=== PATIENT | female | born 1990 | race Caucasian/White ===

== ENCOUNTER 2024-03-21 16:10 | Emergency (ER) | payer OTHER, SELFPAY ==
--- NOTE | ~2024-03-21 | XR_ITS ---
CLINICAL HISTORY: middle finger injury Three views of the left middle finger. Findings: No acute fractures are seen. There is no dislocation. There is mild soft tissue swelling. Impression: No acute fractures. This document has been electronically signed by: Carlos Alberto Hinds MD on 03/21/2024 17:22:39
[2024-03-21 16:16] VITALS: BP 126/84; PULSE 93; RESP 18; TEMP 37.1; O2SAT 98; BMI 26.6
--- NOTE | 2024-03-21 17:43 | ED_ITS ---
HPI - Wound/Laceration General Chief Complaint: Extremity Injury, Lower Stated Complaint: laceration to middle left finger Time Seen by Provider: 03/21/24 17:42 Source: patient Mode of arrival: ambulatory Limitations: no limitations History of Present Illness ED Provider: Allison Richards PA-C HPI narrative: 33 yo right hand dominant female presents to the ER from [facility] for evaluation of left middle finger injury sustained today while at work. She states a window accidentally shut on her finger, causing it to break her middle fingernail and lacerate the tip. she was sent to the ER for concern of an open finger fracture. no numbness, tingling. she is able to fully extend and flext the finger. unknown tdap status. Onset (ago): hour(s) Extremity Location: left: hand (middle finger) Place: work Patient tetanus UTD: No Context: accidental Associated symptoms: none Treatments prior to arrival: bandage Related Data Allergies Allergy/AdvReac Type Severity Reaction Status Date / Time No Known Allergies Allergy Verified 03/21/24 16:20 Review of Systems Review of Systems: Yes all other systems are reviewed and are negative [facility] Social History Social History Advance Directives: No Advance Directives Information Provided: No Do you have a plan to hurt others: No Plan Physical Exam Vital Signs: Vital Signs: Last Vital Signs Temp 98.7 F 03/21/24 18:25 Pulse 93 03/21/24 18:25 Resp 18 03/21/24 18:25 BP 126/84 03/21/24 18:25 Pulse Ox 98 03/21/24 18:25 O2 Del Method Room Air 03/21/24 18:25 BMI result Body Mass Index 26.6 Appearance: Alert. Oriented X3. No acute distress. HEENT: normal inspection CVS: Normal heart rate and rhythm. Pulses normal. Respiratory: No respiratory distress. Skin: Skin warm and dry. Normal skin color. Normal skin turgor. No rashes. Extremities: left middle finger with an irregular laceration of the tip involving the distal nail which is severed, mild oozing. proixmal nail bed is intact. sensation and cap refill intact. FROM Neuro: Oriented X 3. No motor deficit. No sensory deficit. Medications Administered Discontinued Medications Generic Name Dose Route Start Last Admin Trade Name Freq PRN Reason Stop Dose Admin Diphtheria/Tetanus/Acell Pertussis 0.5 ml 03/21/24 17:44 03/21/24 18:21 Diphth,Pertus(Acell),Tet Adult 0.5 Ml Syringe IM 03/21/24 17:45 0.5 ml .ONCE ONE Administration Lidocaine HCl 5 ml 03/21/24 17:42 03/21/24 18:04 Lidocaine Hcl 1 % Mpf 5 Ml Vial INFILTRATI 03/21/24 17:43 5 ml ONCE ONE Administration Lidocaine/Epinephrine 10 ml 03/21/24 17:52 03/21/24 17:58 Lidocaine Hcl 1%/Epi 1:100,000 10 Ml Vial INFILTRATI 03/21/24 17:53 10 ml ONCE ONE Administration Medical Decision Making Medical Decision Making MDM Narrative: 33 yo female presenting for evaluation of a complex left middle finger laceration involving the nail. xr done today does not show any fracture wound was irrigated and soaked in lidocaine w/ epi. bleeding controlled. distal portion of the fingernail was removed and wound was closed with exofin skin glue and steri strips tdap given [facility] follow up tomorrow stable for d/c home Differential Diagnosis Differential Diagnoses: The differential diagnosis associated with the presentation includes open finger fracture, nail laceration, superficial laceration Independent Interpretation I performed an independent interpretation of an: Plain X-Ray Interpretation: no acute fracture seen, agree w/ radiology read Radiology Impression Discussion of test interpretation with radiology: I have reviewed the radiologist's reading. Radiologist Impression: Findings: No acute fractures are seen. There is no dislocation. There is mild soft tissue swelling. Impression: No acute fractures. Prescription Management I considered prescription management with: Pain Medication and Antibiotic Procedures Laceration Laceration 1: Site: hand Side (If applicable): left Size (cm): 1.5 Description: irregular Depth: simple, single layer Local Anesthetic: lidocaine 1% Amount of anesthesia used (mL): 1 Pre-repair: wound explored, irrigated extensively, deep structures intact and wound margins revised (distal nail removedf) Skin layer closed with: other (exofin skin glue and steri strips) Critical Care Time Critical Care Time Critical Care Time: No Discharge Plan Discharge Clinical Impression: Finger laceration Qualifiers: Encounter type: initial encounter Finger: middle finger Damage to nail status: with damage Foreign body presence: without foreign body Laterality: left Qualified Code(s): S61.313A - Laceration without foreign body of left middle finger with damage to nail, initial encounter Patient Disposition: Home, Self-Care Instructions: Finger Laceration (ED) Additional Instructions: your x-ray today did not show any broken bones steri strips and skin glue were used to close the wound after the distal piece of your nail was removed these will come off on their own, do not peel them off do not get wet for 36-48 hours then you can briefly wash then pat dry keep clean and covered elevate when possible take motrin and tylenol as needed for pain follow up with [facility] If you develop new or worsening symptoms call 911 or come back to the ER for further evaluation. Stand Alone Forms: Work/School Release Interventions: ED Discharge Assessment Last Done: 03/21/24 18:25 Discharge Date/Time: 03/21/24 18:36 Print Language: Kyrgyz
[2024-03-21] MEDS: Lidocaine HCl 1%/Epi 1:100,000 10 ML VIAL INFILTRATI (17:58)
--- NOTE | 2024-03-21 17:58 | PC.NURSE ---
lido with epi used topically
[2024-03-21] MEDS: Lidocaine HCl 1 % MPF 5 ML VIAL INFILTRATI (18:04)
[2024-03-21] MEDS: Diphth,Pertus(ACell),Tet Adult 0.5 ML SYRINGE IM (18:21)
[2024-03-21 18:25] VITALS: BP 126/84; PULSE 93; RESP 18; TEMP 37.1; O2SAT 98
== END 2024-03-21 18:36 | disposition home or self-care (01) ==
LOC: HO.ED 18:29
PROVIDERS: Emergency Provider Emergency Medicine; PCP Internal Medicine
DX: S61.313A Laceration without foreign body of left middle finger with damage to nail, initial encounter (principal); W20.8XXA Other cause of strike by thrown, projected or falling object, initial encounter; Y93.89 Activity, other specified; Y92.59 Other trade areas as the place of occurrence of the external cause; Y99.0 Civilian activity done for income or pay; Z23 Encounter for immunization
CPT/HCPCS: 12001; 73140; 90471; 90715; 99282; 99284; J2003; J2004

== ENCOUNTER → 2024-03-21 16:18 | Outpatient (BNV) | payer OTHER, SELFPAY | PROVIDERS: Emergency Provider Emergency Medicine; PCP Internal Medicine; Visit Provider Radiology Diagnostic Radiology | DX: S60.943A Unspecified superficial injury of left middle finger, initial encounter (principal) | CPT/HCPCS: 73140 ==

== ENCOUNTER → 2024-03-22 08:48 | Outpatient (BNVA) | payer OTHER, SELFPAY | PROVIDERS: PCP Internal Medicine; Visit Provider Physician Assistant | DX: S60.132A Contusion of left middle finger with damage to nail, initial encounter (principal); W24.0XXA Contact with lifting devices, not elsewhere classified, initial encounter | CPT/HCPCS: 99202 ==

== ENCOUNTER → 2024-03-26 08:11 | Outpatient (BNVA) | payer OTHER, SELFPAY | PROVIDERS: PCP Internal Medicine; Visit Provider Registered Nurse | DX: S61.313A Laceration without foreign body of left middle finger with damage to nail, initial encounter (principal); W24.0XXA Contact with lifting devices, not elsewhere classified, initial encounter | CPT/HCPCS: 99213 ==

== ENCOUNTER 2024-04-24 09:20 | Outpatient (AMB) | payer OTHER, SELFPAY ==
[2024-04-24 09:22] VITALS: BP 120/68; PULSE 99; O2SAT 97; BMI 26.6
--- NOTE | 2024-04-24 09:22 | MHC.OFFVIS ---
Vital Signs 04/24/24 09:22 Height 5 ft 4 in Weight 155 lb BMI 26.6 BP 120/68 Blood Pressure Location Rt brachial Position Sitting Pulse 99 Pulse Oximetry (%) 97 Oxygen Delivery Method Room Air Intake Visit Reasons: Asthma Marine Mechanic Required: No Draw Furnace Tender: Draw Furnace Tender offered & declined Accompanied by: Self / Same As Patient Allergies No Known Allergies Allergy (Verified 04/24/24 09:28) Medication List - Last Reconciled 04/24/24 by Erika Mason LPN desogestrel-ethinyl estradiol 0.15-0.03 mg (Apri) 1 tab PO DAILY fluoxetine 20 mg PO DAILY fluticasone propion-salmeterol 100-50 mcg/dose (Wixela Inhub) 1 inh inhalation Q12H hydroxyzine pamoate 25 mg PO TID PRN HPI HPI Asthma: Details: Michelle is a pleasant 34 year old female, never smoker, with underlying asthma, anxiety and depression. She was referred by PCP for pulmonary evaluation. She was previously under the care of pulmonary with Dr. Nevarez, however provider retiring and presents to establish care. She is well controlled on Wixela 100 mcg and has not required albuterol MDI in quite some time. At this time, denies any respiratory symptoms. She was dx with asthma as an adult. She denies seasonal allergies. She denies any occupational exposures. She reports paternal grandfather, smoker, with h/o lung cancer otherwise no pertinent family history. [facility] Social History (Updated 04/24/24 @ 09:29 by Erika Mason LPN) Patient Tobacco Use Status: Never used Tobacco Review of Systems Const Denies chills, Denies excessive sweating, Denies fever(s), Denies headache(s) and Denies night sweats Eyes Denies dry eyes, Denies irritation and Denies itchy eyes ENT Reports Normal hearing present, Denies headache(s), Denies nasal congestion, Denies nasal discharge, Denies post nasal drip and Denies sore throat Card Denies chest pain, Denies chest pain at rest, Denies chest pain with activity, Denies claudication, Denies leg edema, Denies dyspnea, Denies dyspnea on exertion, Denies orthopnea and Denies paroxysmal nocturnal dyspnea Resp Denies chest congestion, Denies cough, Denies excessive phlegm production, Denies pain on inspiration, Denies pain with cough, Denies dyspnea, Denies dyspnea on exertion, Denies stridor and Denies wheezing Musc Denies myalgias Neuro Reports Normal hearing present and Denies headache(s) Endo Denies excessive sweating Prateek/Lymph Denies lymphadenopathy Aller/Immun Denies itchy eyes, Denies seasonal rhinorrhea and Denies wheezing Physical Exam Vital Signs: Last Vital Signs Pulse 99 04/24/24 09:22 BP 120/68 04/24/24 09:22 Pulse Ox 97 04/24/24 09:22 Oxygen Delivery Method Room Air 04/24/24 09:22 BMI result Body Mass Index 26.6 Const General: cooperative, healthy appearing, comfortable, no acute distress, well developed and alert Orientation/consciousness: patient oriented x3 Limitations: no limitations HEENT Head: Yes normal to inspection, Yes normocephalic and Yes atraumatic Ears: hearing grossly normal bilaterally and external ears normal Eyes General: appearance normal, both eyes and all related structures Eyelids: Yes eyelids normal Sclerae: sclerae normal EOM: EOMs intact bilaterally Neck Neck: Yes normal visual inspection and Yes no lymphadenopathy Lymphatic: no lymphadenopathy noted Chest Chest palpation & inspection: normal inspection of the chest Resp Effort & Inspection: normal respiratory effort, able to speak in complete sentences, no audible wheezes, no cough, no stridor, not tachypneic, no tripod positioning and no use of accessory muscles Auscultation: clear to auscultation bilaterally Cardio Jugular venous distension: no JVD Rate: regular rate Rhythm: regular rhythm Skin Other: warm, dry General skin exam: no rashes or lesions noted Neuro General: patient oriented x3 Cranial nerves: Yes Normal hearing present Cognition (Neuro): normal cognition Gait exam (Neuro): Normal gait present Extrem General: Yes normal to inspection, Yes capillary refill normal, Yes no clubbing, cyanosis or edema and Yes no pedal edema Psych Appearance: grossly normal and well kempt Speech and movement: Normal speech and movement present and Clear speech present Affect: normal affect Attitude: cooperative Thought process: Normal thought process present Thought content: Normal thought content present Insight: Good insight present (Psych) Judgement: Good judgement present (Psych) Assessment & Plan Assessment & Plan (1) Asthma: Code(s): J45.909 - Unspecified asthma, uncomplicated Category: Medical Plan Michelle presents for pulmonary evaluation with known h/o asthma. Will send for PFT to assess for obstructive defect. At this time, she reports excellent control on Wixela 100mcg , advised to continue. She will call when refills are needed. Will follow up to review results of PFT or sooner if needed. All questions were answered and patient is in agreement of plan. Orders: Orders PFT pulmonary function test Today J45.909 - Unspecified asthma, uncomplicated Coding Level of Care Code New Pt Level 3 (82249) Diagnoses Asthma J45.909
--- OUTSIDE RECORDS SUMMARY | 2024-04-24 09:51 | XMS_ITS | Clinical Summary ---
Author Organization [facility] [address] [facility] Address [address] [place], [place] Phone Care Team Providers Care Snow Maker Name Role Phone Talia Valle MD Primary Care Provider [phone] Allergies No known active allergies Medications Medication Sig Dispensed Refills Start Date End Date Status fluticasone propion-salmeteroL (Wixela Inhub) 100-50 mcg/dose diskus inhaler Inhale 1 puff by mouth 2 (two) times a day. 11/11/2021 Active hydrOXYzine HCL (ATARAX) 25 mg tablet Take 1 tablet (25 mg total) by mouth 3 (three) times a day if needed. 08/04/2023 Active Apri 0.15-0.03 mg per tabletIndications:Enco unter for surveillance of contraceptive pills TAKE 1 TABLET BY MOUTH EVERY DAY 84 tablet 2 02/19/2024 Active FLUoxetine (PROzac) 20 mg capsule Take 1 capsule (20 mg total) by mouth 1 (one) time each day. 90 capsule 1 02/26/2024 Active Active Problems Problem Noted Date Diagnosed Date Anxiety and depression 03/16/2017 Mild persistent asthma 02/10/2017 Overview (01/15/2024): Follows with pulmonary Encounters Date Type Department Care Team Description 02/26/2024 8:15 AM EST Office Visit Adult Medicine [facility] [address] [place] [address] Talia Valle MD Mild persistent asthma without complication (Primary Dx); Anxiety and depression from Last 3 Months Immunizations Name Administration Dates Next Due DTaP (Infanrix) 6wks to less than 7yo ,10/28/1993,1992,08/25,1992 BHoP-KVU-PTW (Pentacel) 2mo to less than 5yo 07/22/1993,1992,1992,06/26 HPV, Quadrivalent 03/12/2007,11/08/2006,09/05/19 07 Hepatitis B Pediatric (Enger ix B; Recombivax HB) to less than 20 yo 09/04/2001,1992,1992,04/23 IPV Inactivated polio (Ipol) 6wks and older 05/15/1997,10/28/1993,1992,06/26 MMR, measles mumps and rubel la Live (Priorix; M-M-R II) 12mo and older 04/24/1996,07/22/1993 Meningococcal MCV4P 09/04/2006 Td Tetanus diptheria (Tdvax) 7yo and older 07/22/2004 Tdap Tetanus diptheria acell ular pertussis (Boostrix; Adacel) 7yo and older 11/25/2021,09/05/2007 Varicella live (Varivax) 12m o and older 09/05/2007,08/16/1999 Surgical History Surgery Date Site/Laterality Comments NO PAST SURGERIES Medical History Medical History Date Comments Asthma Anxiety and depression Family History Medical History Relation Name Comments Heart attack Maternal Grandmother Breast cancer Other 1 aunt Hypertension Other 2 uncle Lung cancer Paternal Grandfather Relation Name Status Comments Maternal Grandmother Other 1 Other 2 Paternal Grandfather Social History Tobacco Use Types Packs/Day Years Used Date Smoking Tobacco: Never Assessed Sex and Gender Information Value Date Recorded Sex Assigned at Not on file Gender Identity Not on file Sexual Orientation Not on file Job Start Date Occupation Industry Not on file Not on file Not on file Obstetrics History Last Filed Vital Signs Vital Sign Reading Time Taken Comments Blood Pressure 106/66 02/26/2024 8:12 AM EST Pulse 97 02/26/2024 8:12 AM EST Temperature 36.5 ??C (97.7 ??F) 02/26/2024 8:12 AM ES T Respiratory Rate 16 02/26/2024 8:12 AM EST Oxygen Saturation 99% 02/26/2024 8:12 AM EST Inhaled Oxygen Concentration - - Weight 73 kg (161 lb) 02/26/2024 8:12 AM EST Height 163.8 cm (5' 4.5 ) 02/26/2024 8:12 AM EST Body Mass Index 27.21 02/26/2024 8:12 AM EST Plan of Treatment Upcoming Encounters Date Type Department Care Team (Late st Contact Info) Description 06/25/2024 1:30 PM EDT Office Visit Obstetrics and Gynecology - [address] [phone] Angela Loving CNM [address] [place] [address] 08/02/2024 8:30 AM EDT Office Visit Adult Medicine [facility] - [address] [phone] Talia Valle MD [address] [place] [address] [phone] Health Maintenance Due Date Last Done Comments Pneumococcal Vaccine: Pediatrics (0 to 5 Years) and At-Risk Patients (6 to 64 Years) (1 of 2 - PCV) 1998 Depression Screening 03/12/2022 Social Influencers of Health Screening 03/12/2022 COVID-19 Vaccine (2 - season) 2023 07/11/2020 Influenza Vaccine (#1) 2024 Postp oned from 12/03/2023 (Patient Refused) Cervical Cancer Screening: HPV 04/13/2028 04/13/2023 Cholesterol Screening (Lipid Panel) 08/03/2028 08/04/2023, 08/04/2023 DTaP,Tdap,and Td Vaccines (9 - Td or Tdap) 11/26/2031 11/25/2021, 09/05/2007, 07/22/2004, Additional history exists HIB Vaccines Completed 07/22/1993, 10/02, 1992, Additional history exists MMR Vaccines Completed 04/24/1996, 07/22/1993 IPV Vaccines Completed 05/15/1997, 10/02, 07/22/1993, Additional history exists Hepatitis B Vaccines Completed 09/04/2001, 1992, 1992, Additional history exists Meningococcal ACWY Vaccine Aged Out 09/04/2006 N o longer eligible based on patient's age to complete this topic HPV Vaccines Completed 03/12/2007, 0811/2006, 09/04/2006 Varicella Vaccines Completed 09/05/2007, 08/16/1999 HIV Screening Completed 03/10/2017 Hepatitis C Screening Completed 03/20/2017 Hepatitis A Vaccines Aged Out No long er eligible based on patient's age to complete this topic RSV Immunization Patients Under 20 months Aged Out No longer eligible based on patient's age to complete this topic Procedures Procedure Name Priority Date/Time Associated Diagnosis Comments LIPID PANEL Routine 08/04/2023 HPV Routine 04/13/2023 HEPATITIS C SCREENING Routine 03/20/2017 HIV SCREENING Routine 03/10/2017 from Last 3 Months or Most Recently Relevant to Health Maintenance Results * Lipid panel (08/04/2023) [facility] LDL/HDL Ratio 2 0 - 4 Triglycerides 58 0 - 150 mg/dL Cholesterol 177 0 - 200 mg/dL HDL 103 40 mg/dL LDL Cholesterol 63 0 - 100 mg/dL Blood Venous blood specimen / Unknown Historical Provider LAB BLOOD ORDERAB LES * Cervical Cancer Screening: HPV (04/13/2023) [facility] Cervical Cancer Screening: HPV negative,a bstracted Historical Provider MD SHANKAR ENRIQUE * Hepatitis C Screening (03/20/2017) [facility] Hepatitis C Screening ABSTRACTED Historical Provider MD SHANKAR Gale * HIV Screening (03/10/2017) HIV Screening ABSTRACTED Historical Provider MD SHANKAR Gale from Last 3 Months or Most Recently Relevant to Health Maintenance Care Teams Snow Maker Relationship Specialty Start Date End Date Talia Valle MD [address] [place] [address] PCP - General Internal Medicine 06/01/21
--- OUTSIDE RECORDS SUMMARY | 2024-04-24 09:51 | XMS_ITS | Clinical Summary ---
Author Organization [facility] Address [address] [place] [phone] Phone Care Team Providers Care Supervisor Forming Department Name Role Phone Unavailable Primary Care Provider Unavailabl e Immunizations Name Administration Dates Next Due DTP 05/15/1997, 4,1992,08/25,1992 HPV, Quadrivalent 03/12/2007,11/08/2006,09/05/19 07 Hep B, ped/adol 09/04/2001, 3,1992,04/23 Hib (PRP-T) 07/22/1993, 3,1992,06/26 MMR 04/24/1996,07/22/1993 Meningococcal Conj (Menactra) MCV4P 09/04/2006 OPV 05/15/1997, 4,1992,06/26 Td (adult) (MBL), 2 Lf tetan us toxoid, PF, adsorbed 07/22/2004 Tdap 09/05/2007 Varicella 09/05/2007,08/16/1999 Family History Relation Name Status Comments Brother Alive Brother: Alive and well Father Alive Father: Alive a nd well Mother Alive Mother: Alive a nd well Social History Tobacco Use Types Packs/Day Years Used Date Smoking Tobacco: Never Comments:Never smoker Comments Unknown Sex and Gender Information Value Date Recorded Sex Assigned at Not on file Legal Sex Female 4:51 PM EDT Gender Identity Not on file Sexual Orientation Not on file Last Filed Vital Signs Vital Sign Reading Time Taken Comments Blood Pressure 96/67 03/25/2013 12:00 AM EST Pulse 72 11/07/2012 12:00 AM EDT Temperature 36.7 ??C (98 ??F) 08/28/2012 12: 00 AM EDT Respiratory Rate - - Oxygen Saturation - - Inhaled Oxygen Concentration - - Weight 45.7 kg (100 lb 12.8 oz) 013 12:00 AM EST Height 161.3 cm (5' 3.5 ) 09/10/2012 12 :00 AM EDT Body Mass Index 17.58 09/10/2012 12:00 AM EDT Plan of Treatment Health Maintenance Due Date Last Done Comments DTaP,Tdap,and Td Vaccines (7 - Td or Tdap) 09/04/2017 09/05/2007, 07/22/2004, 05/15/1997, Additional history exists Influenza Vaccines (#1) 2023 COVID-19 Vaccine ( season) 2023 HIB Vaccines Completed 07/22/1993, 10/02, 1992, Additional history exists MMR Vaccines Completed 04/24/1996, 07/22/1993 IPV Vaccines Completed 05/15/1997, 10/02, 1992, Additional history exists Hepatitis B Vaccines Completed 09/04/2001, 1992, 1992, Additional history exists Meningococcal Vaccine Aged Out 09/04/2006 No sunil unique eligible based on patient's age to complete this topic HPV Vaccines Completed 03/12/2007, 11/2006, 09/04/2006 Varicella Vaccines Completed 09/05/2007, 08/16/1999 Hepatitis A Vaccines Aged Out No long er eligible based on patient's age to complete this topic Men B Vaccine Aged Out No longer elig ible based on patient's age to complete this topic Pneumococcal Vaccine Aged Out No long er eligible based on patient's age to complete this topic
--- OUTSIDE RECORDS SUMMARY | 2024-04-24 09:52 | XMS_ITS | Encounter Summary ---
Author Organization [facility] Address [address] [place] [address] Phone Care Team Providers Care Retail Wireless Sales Representative Name Role Phone Reva Acevedo MD Primary Care Provider [phone] Encounter Details Date Type Department Care Team (Late st Contact Info) Description 05/25/2012 Documentation [facility] [place] [address] [place], [place] [phone] Family Medicine, Physician [address] [place] [address] Social History Tobacco Use Types Packs/Day Years Used Date Smoking Tobacco: Never Assessed Comments Unknown Sex and Gender Information Value Date Recorded Sex Assigned at Not on file Legal Sex Female 4:51 PM EDT Gender Identity Not on file Sexual Orientation Not on file documented as of this encounter Plan of Treatment Not on file documented as of this encounter Visit Diagnoses Not on filedocumented in this encounter Care Teams Retail Wireless Sales Representative Relationship Specialty Start Date End Date Reva Acevedo MD [address] [place] [address] [place] [address] PCP - General 11/11/16 11/08/22 documented as of this encounter
--- OUTSIDE RECORDS SUMMARY | 2024-04-24 09:52 | XMS_ITS | Encounter Summary ---
Author Organization [facility] Address [address] [place] [phone] Phone Care Team Providers Care Budget Analyst Name Role Phone Reva Acevedo MD Primary Care Provider [phone] Encounter Details Date Type Department Care Team (Late st Contact Info) Description 11/26/2014 Documentation [facility] [place] Family Medicine [address] [place] [address] Family Medicine, Physician [address] [place] [address] Social History Tobacco Use Types Packs/Day Years [...] on filedocumented in this encounter Care Teams Budget Analyst Relationship Specialty Start Date End Date Reva Acevedo MD [address] [place] [address] [place] [address] PCP - General 11/11/16 11/08/22 documented as of this encounter
--- OUTSIDE RECORDS SUMMARY | 2024-04-24 09:52 | XMS_ITS | Encounter Summary ---
Author Organization [facility] Address [address] [place] [address] Phone Care Team Providers Care Police Stenographer Name Role Phone Reva Acevedo MD Primary Care Provider [phone] Encounter Details Date Type Department Care Team (Late st Contact Info) Description 09/11/2012 Documentation [facility] [place] Family Medicine [address] [place], [place] [phone] Family Medicine, Physician [address] [place] [address] Social History Tobacco Use Types Packs/Day Years [...] on filedocumented in this encounter Care Teams Police Stenographer Relationship Specialty Start Date End Date Reva Acevedo MD [address] [place] [address] [place] [address] PCP - General 11/11/16 11/08/22 documented as of this encounter
--- OUTSIDE RECORDS SUMMARY | 2024-04-24 09:52 | XMS_ITS | Encounter Summary ---
Author Organization [facility] Address [address] [place] [address] Phone Care Team Providers Care Bingo Floater Name Role Phone Reva Acevedo MD Primary Care Provider [phone] Encounter Details Date Type Department Care Team (Late st Contact Info) Description 05/24/2012 [place] [facility] [place] [address] [place], [place] [phone] Family Medicine, Physician [address] [place] [address] Social History Tobacco Use Types Packs/Day Years [...] on filedocumented in this encounter Care Teams Bingo Floater Relationship Specialty Start Date End Date Reva Acevedo MD [address] [place] [address] [place] [address] PCP - General 11/11/16 11/08/22 documented as of this encounter
--- OUTSIDE RECORDS SUMMARY | 2024-04-24 09:52 | XMS_ITS | Encounter Summary ---
Author Organization [facility] Address [address] [place] [address] Phone Care Team Providers Care Head Doffer Name Role Phone Reva Acevedo MD Primary Care Provider [phone] Encounter Details Date Type Department Care Team (Late st Contact Info) Description 11/17/2016 Conversion Encounter [facility] [address] [place] [address] Social History Tobacco Use Types Packs/Day Years [...] on filedocumented in this encounter Care Teams Head Doffer Relationship Specialty Start Date End Date Reva Acevedo MD [address] [place] [address] PCP - General 11/11/16 11/08/22 documented as of this encounter
--- OUTSIDE RECORDS SUMMARY | 2024-04-24 09:52 | XMS_ITS | Encounter Summary ---
Author Organization [facility] Address [address] [place] [address] Phone Care Team Providers Care Adoption Social Worker Name Role Phone Reva Acevedo MD Primary Care Provider [phone] Encounter Details Date Type Department Care Team (Late st Contact Info) Description 03/20/2013 Documentation [facility] [place] Family Medicine [address] [place], [place] [id number] Family Medicine, Physician [address] [place] [address] Social History Tobacco Use Types Packs/Day Years [...] on filedocumented in this encounter Care Teams Adoption Social Worker Relationship Specialty Start Date End Date Reva Acevedo MD [address] [place] [address] [place] [address] PCP - General 11/11/16 11/08/22 documented as of this encounter
== END 2024-04-24 09:57 | disposition home or self-care (01) ==
PROVIDERS: PCP Internal Medicine; Referring Provider Internal Medicine; Visit Provider Nurse Practitioner Family
DX: J45.909 Unspecified asthma, uncomplicated (principal)
CPT/HCPCS: 99203

== ENCOUNTER → 2024-04-24 09:20 | Outpatient (BNVA) | payer OTHER, SELFPAY | PROVIDERS: PCP Internal Medicine; Referring Provider Internal Medicine; Visit Provider Nurse Practitioner Family | DX: J45.909 Unspecified asthma, uncomplicated (principal) | CPT/HCPCS: 99202 ==

== ENCOUNTER 2024-05-31 15:45 | Outpatient (REF) | payer OTHER, SELFPAY ==
--- NOTE | 2024-05-31 15:54 | PFT_ITS ---
Flows: FEV1: 93 % of predicted at 2.94 L FVC: 108 % of predicted at 4.08 L FEV1/FVC: 72 % Bronchodilator response: Absent Volumes: Total lung capacity: 95 % of predicted at 4.94 L Residual volume: 72 % of predicted at 0.86 L Slow vital capacity: 102 % of predicted at 4.08 L Expiratory reserve volume: 76 % of predicted at 0.98 L Diffusion capacity: Normal Impression: No obstructive or restrictive ventilatory defect. No bronchodilator response. Normal pulmonary function test. MTDD
[2024-05-31 16:33] VITALS: PULSE 85
--- OUTSIDE RECORDS SUMMARY | 2024-05-31 17:45 | XMS_ITS | Clinical Summary ---
Author Organization [facility] Address [address] [place] [address] Phone Care Team Providers Care Coloring Room Man Name Role Phone Talia Valle MD Primary Care Provider [phone] Allergies No known active allergies Medications fluticasone propion-salmeteroL (Wixela Inhub) 100-50 mcg/dose diskus inhaler Inhale 1 puff by mouth 2 (two) times a day. 2 Active hydrOXYzine HCL (ATARAX) 25 mg tablet Take 1 tablet (25 mg total) by mouth 3 (three) times a day if needed. 4 Active Apri 0.15-0.03 mg per tabletIndications: Encounter for surveillance of contraceptive pills TAKE 1 TABLET BY MOUTH EVERY DAY 84 tablet 2 4 Active FLUoxetine (PROzac) 20 mg capsule Take 1 capsule (20 mg total) by mouth 1 (one) time each day. 90 capsule 1 4 Active Active Problems Problem Noted Date Diagnosed Date Anxiety and depression 03/16/2017 Mild persistent asthma 02/10/2017 Overview (01/15/2024): Follows with pulmonary Immunizations Name Administration Dates Next Due DTaP (Infanrix) 6wks to less than 7yo ,10/28/1993,1992,08/25,1992 [id number] (Pentacel) 2mo to less than 5yo 07/22/1993,1992,1992,06/26 [...] at Not on file Legal Sex Female 10:41 AM EST Gender Identity Not on file Sexual Orientation Not on file Obstetrics History Last Filed [...] PM EDT Office Visit Obstetrics and Gynecology [address] [phone] Angela Loving CNM [address] [place], [place] 08/02/2024 8:30 AM EDT Office Visit Adult Medicine [address] [phone] Talia Valle MD [address] [place], [place] Health Maintenance Due Date Last Done Comments Pneumococcal Vaccine: Pediatrics (0 to 5 Years) and At-Risk Patients (6 to 64 Years) (1 of 2 - PCV) 2011 Depression Screening 03/12/2022 Social Influencers of Health [...] 11/2006, 09/04/2006 Varicella Vaccines Completed 09/05/2007, 08/16/1999 HIV Screening Completed 03/10/2017 Hepatitis C Screening Completed 03/20/2017 Hepatitis A Vaccines Aged Out No long er eligible based on patient's age to complete this topic Meningococcal B Vacine Aged Out No lo nger eligible based on patient's age to complete [...] Health Maintenance Results * Lipid panel (08/04/2023) [facility] LDL/HDL Ratio 2 0 - 4 Triglycerides 58 0 - 150 mg/dL Cholesterol 177 0 - 200 mg/dL HDL 103 >=40 mg/dL LDL Cholesterol 63 0 - 100 mg/dL Blood Venous blood specimen / Unknown [facility] Provider LAB BLOOD ORDERABLES Anahi l Result * Cervical Cancer Screening: HPV (04/13/2023) [facility] Cervical Cancer Screening: HPV negative,a bstracted [facility] Kimberlee [place] [employer]CE Final Result * Hepatitis C Screening (03/20/2017) [facility] Hepatitis C Screening ABSTRACTED [facility] Kimberlee [place] [employer]TE[employer] Final Result * HIV Screening (03/10/2017) [facility] HIV Screening ABSTRACTED [facility] Provider HEALTH MAINTENANCE Final Result from Last 3 Months or Most Recently Relevant to Health Maintenance Insurance [facility] Medypal PLANS [facility] Clicknation PLAN Care Teams Coloring Room Man Relationship Specialty Start Date End Date Talia Valle MD [address] [place] [address] PCP - General Internal Medicine 06/01/21
--- OUTSIDE RECORDS SUMMARY | 2024-05-31 17:45 | XMS_ITS | Encounter Summary ---
Author Organization [facility] Address [address] [place] [address] Care Team Providers Care Telephoner Name Role Phone Joyce Mcgrath MD Primary Care Provider Unavail able Talia Valle MD Primary Care Provider [phone] Encounter Details Date Type Department Care Team Description 04/14/2017 Printed Circuit Board Designer Report Medical Records [address] [place] [address] David Nevarez Social History Tobacco Use Types Packs/Day Years Used Date Smoking Tobacco: Never Smokeless Tobacco: Never Alcohol Use Standard Drinks/Week Comments Yes 0 (1 standard drink = 0.6 oz pur e alcohol) socially Sex Assigned at Date Recorded Female 02/15/2021 10:43 AM EST documented as of this encounter Plan of Treatment Not on file documented as of this encounter Visit Diagnoses Not on filedocumented in this encounter Care Teams Telephoner Relationship Specialty Start Date End Date Joyce Mcgrath MD PCP - General Internal Medicine 01/27/17 05/31/21 Talia Valle MD [address] [place] [address] PCP - General Internal Medicine 06/01/21 documented as of this encounter
--- OUTSIDE RECORDS SUMMARY | 2024-05-31 17:45 | XMS_ITS | Encounter Summary ---
Author Organization [facility] Address [address] [place] [address] Care Team Providers Care Multiple Punch Press Operator Name Role Phone Talia Valle MD Primary Care Provider [phone] Reason for Visit * Reason Comments E-prescribe Rx Request Encounter Details Date Type Department Care Team Description 07/31/2023 Refill Adult Medicine [address] [phone] Talia Valle MD [address] [place] [phone] E-prescribe Rx Request Social History Tobacco Use Types Packs/Day Years Used Date Smoking Tobacco: Never Smokeless Tobacco: Never Alcohol Use Standard Drinks/Week Comments Yes 0 (1 standard drink = 0.6 oz pur e alcohol) socially Sex Assigned at Date Recorded Female 02/15/2021 10:43 AM EST documented as of this encounter Miscellaneous Notes * Telephone Encounter - Radha Welsh - 08/03/2023 8:43 PM EDT Patient would like script to be: E-PRESCRIBED/FAXED TO PHARMACY WHEN WAS THE PATIENT'S LAST APPOINTMENT IN ADULT MEDICINE? 02/03/23 WHEN WAS THE LAST TIME THE PATIENT SAW THEIR PCP? Same as above Does patient have an upcoming appointment? Yes 08/04/23 (THE MEDICATION REQUESTED IS ON THE MED LIST ABOVE) All of the medications requested were on the CURRENT MEDS list Did you check the Pharmacy information above?: YES Patient wants: 90 -day supply Is this a mail order prescription request ? NO If the refill is from a FAXED refill request what is the RX # listed on the fax? N/A Patients current insurance carrier is: Payor: [facility] [place] [employer] PLAN / Plan: DIRECT CONNECT $0/$22 K[employer]A [employer] [id number] / Product Type: OTHER documented in this encounter Plan of Treatment Not on file documented as of this encounter Visit Diagnoses Not on filedocumented in this encounter Care Teams Multiple Punch Press Operator Relationship Specialty Start Date End Date Talia Valle MD [address] [place] [address] PCP - General Internal Medicine 06/01/21 documented as of this encounter
--- OUTSIDE RECORDS SUMMARY | 2024-05-31 17:45 | XMS_ITS | Encounter Summary ---
Author Organization [facility] Address [address] [place] [address] Care Team Providers Care Fingerer Name Role Phone Joyce Mcgrath MD Primary Care Provider Unavail able Talia Valle MD Primary Care Provider [phone] Encounter Details Date Type Department Care Team Description 03/19/2021 Business Objects Analyst Report Medical Records [address] [place] [address] David Nevarez Social History Tobacco Use Types [...] on filedocumented in this encounter Care Teams Fingerer Relationship Specialty Start Date End Date Joyce Mcgrath MD PCP - General Internal Medicine 01/27/17 05/31/21 Talia Valle MD [address] [place] [address] PCP - General Internal Medicine 06/01/21 documented as of this encounter
--- OUTSIDE RECORDS SUMMARY | 2024-05-31 17:45 | XMS_ITS | Encounter Summary ---
Author Organization [facility] Address [address] [place] [address] Phone Care Team Providers Care Seed District Sales Manager Name Role Phone Reva Acevedo MD Primary Care Provider [phone] Encounter Details Date Type Department Care Team (Late st Contact Info) Description 11/17/2016 Conversion Encounter [facility] [address] [place] [address] Social History Tobacco Use Types Packs/Day Years [...] on filedocumented in this encounter Care Teams Seed District Sales Manager Relationship Specialty Start Date End Date Reva Acevedo MD [address] [place] [address] PCP - General 11/11/16 11/08/22 documented as of this encounter
--- OUTSIDE RECORDS SUMMARY | 2024-05-31 17:45 | XMS_ITS | Encounter Summary ---
Author Organization [facility] Address [address] [place] [address] Phone Care Team Providers Care Phone Triage Specialist Name Role Phone Reva Acevedo MD Primary Care Provider [phone] Encounter Details Date Type Department Care Team (Late st Contact Info) Description 11/26/2014 Documentation [facility] [place] Family Medicine [address] [place] [address] Family Medicine, Physician [address] [place] [address] Social History Tobacco Use Types Packs/Day Years [...] on filedocumented in this encounter Care Teams Phone Triage Specialist Relationship Specialty Start Date End Date Reva Acevedo MD [address] [place] [address] [place] [address] PCP - General 11/11/16 11/08/22 documented as of this encounter
--- OUTSIDE RECORDS SUMMARY | 2024-05-31 17:45 | XMS_ITS | Clinical Summary ---
Author Organization [facility] Address [address] [place] [address] Care Team Providers Care Hearing Aid Consultant Name Role Phone Talia Valle MD Primary Care Provider [phone] Allergies No known active allergies Medications Medication Sig Dispensed Refills Start Date End Date Status Wixela Inhub 100-50 MCG/ACT AEROSOL POWDER,BREATH ACTIVATED INHALE 1 PUFF DIRECTED EVERY TWELVE HOURS 0 11/11/2021 Active hydrOXYzine (ATARAX) 25 MG tablet Take 1 Tablet by mouth 3 times daily as needed for Anxiety. 60 Tablet 0 08/04/2023 Active fluoxetine (PROZAC) 20 MG capsule Take 1 Capsule by mouth daily. 90 Capsule 1 11/02/2023 Active desogestrel-ethinyl estradiol (APRI) 0.15-30 MG-MCG per tabletIndications:Enc ounter for surveillance of contraceptive pills TAKE 1 TABLET BY MOUTH EVERY DAY 84 Tablet 0 11/28/2023 Active Active Problems Problem Noted Date Anxiety and depression 03/16/2017 Mild persistent asthma 02/10/2017 Overview: Follows with pulmonary Immunizations Name Administration Dates Next Due COVID-19 (CECILE AND CECILE) 07/11/2020 DTaP 05/15/1997, 4,1992,08/25,1992 COmR-[id number] 07/22/1993, 3,1992,06/26 HIB 07/22/1993, 3,1992,06/26 HPV (Gardasil) 03/12/2007,11/08/2006,09/04/2006 Hepatitis B-3 Dose (<19yrs) 09/04/2001,0 1992,1992,04/23 MMR (Eenjfdx-Npyvo-Evlsmxf) 04/24/1996, 4 Meningococcal (Menactra) 09/04/2006 Polio (IPV) 05/15/1997, 4,1992,06/26 TD (STATE SUPPLIED FOR ADULT S AND CHILDREN) 07/22/2004 Tdap 11/25/2021,09/05/2007 Varicella 09/05/2007,08/16/1999 Family History Medical History Relation Name Comments CA Breast Aunt AK Maternal Grandmother heart surgery Maternal Grandmother Cancer of the Lung Paternal Grandfather Hypertension Uncle paternal CA Colon Negative Hx CA Ovarian Negative Hx Uterine Cancer Negative Hx Relation Name Status Comments Aunt Alive Father Alive Maternal Grandfather Alive Maternal Grandmother Mother Alive Paternal Grandfather Paternal Grandmother Uncle paternal Alive Social History Tobacco Use Types Packs/Day Years Used Date Smoking Tobacco: Never Smokeless Tobacco: Never Alcohol Use Standard Drinks/Week Comments Yes 0 (1 standard drink = 0.6 oz pur e alcohol) socially Sex Assigned at Date Recorded Female 02/15/2021 10:43 AM EST Last Filed Vital Signs Vital Sign Reading Time Taken Comments Blood Pressure 119/85 04/13/2023 9:00 AM EST Pulse 81 04/13/2023 9:00 AM EST Temperature 36.3 ??C (97.4 ??F) 02/03/2023 10:26 AM E DT Respiratory Rate 16 10/12/2020 8:44 AM EDT Oxygen Saturation - - Inhaled Oxygen Concentration - - Weight 67.1 kg (148 lb) 04/13/2023 9:00 AM EST Height 162.6 cm (5' 4 ) 08/04/2023 8:29 AM EDT Body Mass Index 25.4 03/01/2022 8:45 AM EST Plan of Treatment Health Maintenance Due Date Last Done Comments PNEUMOCOCCAL VACCINE FOR HIG H RISK PATIENTS (#1) 2011 BASELINE HEALTH EXAM 18-39 03/10/202203/10, 02/10/2017 (Completed), 02/10/2017 Covid-19 Vaccine (2 - 2022-2 4 season) 2023 07/11/2020 INFLUENZA (#1) 2023 BMI CHECK/ADVISE 04/03/2024 08/04/2023, 10/12/2020 CERVICAL CANCER SCREENING 04/13/20262023, 10/10/2019, 03/10/2017 CHOLESTEROL SCREENING 08/03/2028 08/04/2023, 017 DTAP/TDAP/TD (8 - Td or Tdap) 11/26/2031, 09/05/2007, 07/22/2004, Additional history exists Care Teams Hearing Aid Consultant Relationship Specialty Start Date End Date Talia Valle MD [address] [place] [phone] PCP - General Internal Medicine 06/01/21
--- OUTSIDE RECORDS SUMMARY | 2024-05-31 17:45 | XMS_ITS | Clinical Summary ---
Author Organization [facility] Address [address] [place] [address] Phone Care Team Providers Care Stripe Marker Name Role Phone Unavailable Primary Care Provider Unavailabl e Immunizations Immunization Administration Dates Next Due DTP 05/15/1997, 4,1992,08/25,1992 [...]
--- OUTSIDE RECORDS SUMMARY | 2024-05-31 17:45 | XMS_ITS | Encounter Summary ---
Author Organization [facility] Address [address] [place] [address] Phone Care Team Providers Care Currency Examiner Name Role Phone Reva Acevedo MD Primary Care Provider [phone] Encounter Details Date Type Department Care Team (Late st Contact Info) Description 03/20/2013 Documentation [facility] [address] [place], [place] [phone] Family Medicine, Physician [address] [place] [address] Social History Tobacco Use Types Packs/Day Years [...] on filedocumented in this encounter Care Teams Currency Examiner Relationship Specialty Start Date End Date Reva Acevedo MD [address] [place] [address] [place] [address] PCP - General 11/11/16 11/08/22 documented as of this encounter
--- OUTSIDE RECORDS SUMMARY | 2024-05-31 17:45 | XMS_ITS | Encounter Summary ---
Author Organization [facility] Address [address] [place] [address] Phone Care Team Providers Care Instructor Trainer Canine Service Name Role Phone Reva Acevedo MD Primary Care Provider [phone] Encounter Details Date Type Department Care Team (Late st Contact Info) Description 05/25/2012 Documentation [facility] [place] [address] [place], [place] [phone] Family Medicine, Physician [address] [place] [address] Social History Tobacco Use Types Packs/Day Years [...] on filedocumented in this encounter Care Teams Instructor Trainer Canine Service Relationship Specialty Start Date End Date Reva Acevedo MD [address] [place] [address] [place] [address] PCP - General 11/11/16 11/08/22 documented as of this encounter
--- OUTSIDE RECORDS SUMMARY | 2024-05-31 17:45 | XMS_ITS | Encounter Summary ---
Author Organization [facility] Address [address] [place] [address] Care Team Providers Care Clinic Scheduler Name Role Phone Joyce Mcgrath MD Primary Care Provider Unavail Talia Sanders MD Primary Care Provider [phone] Encounter Details Date Type Department Care Team Description 04/25/2018 Pt. Non Urgent Medical Question [facility] [place] [address] [place] [address] Beatriz Arndt DO Social History Tobacco Use Types Packs/Day Years Used Date Smoking Tobacco: Never Smokeless Tobacco: Never Alcohol Use Standard Drinks/Week Comments Yes 0 (1 standard drink = 0.6 oz pur e alcohol) socially Sex Assigned at Date Recorded Female 02/15/2021 10:43 AM EST documented as of this encounter Progress Notes * Eden Spaulding R.N. - 04/25/2018 9:18 AM ESTFrom: Michelle Joyner To: Beatriz Arndt DO Sent: 04/25/2018 9:17 AM EST Subject: Blood Test Referral Good morning Dr. Arndt, I was wondering if you could send a script over to [place] on [facility] for an open blood panel. For the past almost 3 weeks I have been experiencing wicked anxiety, no appetite l, hard timesleeping and small bouts of feeling down. I'm not sure if something is off or if I am lacking a nutrient. I have been having off and on discomfort in my left back/side so I'm not sure if my adrenal gland is suffering or what. I've tried taking supplements but have only been taking them for about 5-10 days. Not sure if I should go the Prozac route which I took a few years ago but really don't wantto have to go that route if I can get the proper supplement. I just want to feel better. Thank you, Michelle documented in this encounter Plan of Treatment Not on file documented as of this encounter Visit Diagnoses Not on filedocumented in this encounter Care Teams Clinic Scheduler Relationship Specialty Start Date End Date Joyce Mcgrath MD PCP - General Internal Medicine 01/27/17 05/31/21 Talia Valle MD [address] [place] [address] PCP - General Internal Medicine 06/01/21 documented as of this encounter
--- OUTSIDE RECORDS SUMMARY | 2024-05-31 17:45 | XMS_ITS | Encounter Summary ---
Author Organization [facility] Address [address] [place] [address] Care Team Providers Care Institutional Research Director Name Role Phone Joyce Mcgrath MD Primary Care Provider Unavail Talia Sanders MD Primary Care Provider [phone] Reason for Visit * Reason Onset Date Comments anxiety 04/25/2018 sleeping problems 04/25/2018 Back Pain 04/25/2018 Encounter Details Date Type Department Care Team Description 04/25/2018 Pt. Non Urgent Medic al Question Adult Medicine [address] [address] Inge Ortega PA-C Social History Tobacco Use Types Packs/Day Years Used Date Smoking Tobacco: Never Smokeless Tobacco: Never Alcohol Use Standard Drinks/Week Comments Yes 0 (1 standard drink = 0.6 oz pur e alcohol) socially Sex Assigned at Date Recorded Female 02/15/2021 10:43 AM EST documented as of this encounter Progress Notes * Kathi Garcia C.M.A. - 04/25/2018 9:56 AM ESTFrom: Michelle Joyner To: Inge Ortega PA-C Sent: 04/25/2018 9:55 AM EST Subject: Blood Test Referral Good Morning Inge, I was hoping you could send a script for an open blood panel to [facility] in [place]? I have been experiencing wicked anxiety, trouble sleeping (waking up at different times during the night), lack of appetite and bouts of feeling down sometimes, simply not myself. I've been feeling this way for about 3 weeks now. I'm not sure if I am lacking a nutrient or if my adrenal gland is out of whack. I have had on and off discomfort on my lower left side/back for sometime now and I'm not sure if that's my adrenal gland or not. I have been taking a few different supplements for about 5-10 days which I know isn't a long time but I don't feel any different. I've taken Prozac a few years ago and really don't want to go that route if I can get the proper supplement to work instead. But if Prozac is the best way then I'll have to go that route. I have asthma so for a while I wasworried about my breathing being out of whack, so I'm not sure if the amount of worrying finally caught up to me and now my body is out of sync. Long story short, a blood test would help to figureout what's going on hopefully. I just want to feel better. Thank you, Michelle Joyner documented in this encounter Plan of Treatment Not on file documented as of this encounter Visit Diagnoses Not on filedocumented in this encounter Care Teams Institutional Research Director Relationship Specialty Start Date End Date Joyce Mcgrath MD PCP - General Internal Medicine 01/27/17 05/31/21 Talia Valle MD [address] [place] [address] PCP - General Internal Medicine 06/01/21 documented as of this encounter
--- OUTSIDE RECORDS SUMMARY | 2024-05-31 17:45 | XMS_ITS | Encounter Summary ---
Author Organization [facility] Address [address] [place] [address] Phone Care Team Providers Care Culture Manager Name Role Phone Reva Acevedo MD Primary Care Provider [phone] Encounter Details Date Type Department Care Team (Late st Contact Info) Description 09/11/2012 Documentation [facility] [place] Family Medicine [address] [place], [place] [phone] Family Medicine, Physician [address] [place] [address] Social History Tobacco Use Types Packs/Day Years [...] on filedocumented in this encounter Care Teams Culture Manager Relationship Specialty Start Date End Date Reva Acevedo MD [address] [place] [address] [place] [address] PCP - General 11/11/16 11/08/22 documented as of this encounter
--- OUTSIDE RECORDS SUMMARY | 2024-05-31 17:45 | XMS_ITS | Encounter Summary ---
Author Organization [facility] Address [address] [place] [address] Care Team Providers Care Account Technician Name Role Phone Joyce Mcgrath MD Primary Care Provider Unavail Talia Sanders MD Primary Care Provider [phone] Encounter Details Date Type Department Care Team Description 01/23/2018 Pt. Non Urgent Medical Question [facility] - [place] [address] [place] [address] Bessie Altamirano CNM Social History Tobacco Use Types Packs/Day Years Used Date Smoking Tobacco: Never Smokeless Tobacco: Never Alcohol Use Standard Drinks/Week Comments Yes 0 (1 standard drink = 0.6 oz pur e alcohol) socially Sex Assigned at Date Recorded Female 02/15/2021 10:43 AM EST documented as of this encounter Progress Notes * Eden Spaulding R.N. - 01/23/2018 2:45 PM EDTFrom: Michelle Joyner To: Bessie Aleman CNM Sent: 01/23/2018 2:44 PM EDT Subject: Refill on APRI 28 Day Tablet Good Afternoon Bessie, I picked up my APRI 28 Day Tablet today from [facility] and I noticed I have no more refills after my current 28 day supply. Could you send in a new prescription for me for more refills? I would greatly appreciate it. Thank you! Michelle Joyner documented in this encounter Plan of Treatment Not on file documented as of this encounter Visit Diagnoses Not on filedocumented in this encounter Care Teams Account Technician Relationship Specialty Start Date End Date Joyce Mcgrath MD PCP - General Internal Medicine 01/27/17 05/31/21 Talia Valle MD [address] [place] [id number] PCP - General Internal Medicine 06/01/21 documented as of this encounter
--- OUTSIDE RECORDS SUMMARY | 2024-05-31 17:45 | XMS_ITS | Encounter Summary ---
Author Organization [facility] Address [address] [place] [address] Care Team Providers Care Forest Products Teacher Name Role Phone Joyce Mcgrath MD Primary Care Provider Unavail able Talia Valle MD Primary Care Provider [phone] Encounter Details Date Type Department Care Team Description 03/13/2020 Automotive Metalsmith Report Medical Records [address] [place] [id number] David Nevarez Social History Tobacco Use Types [...] on filedocumented in this encounter Care Teams Forest Products Teacher Relationship Specialty Start Date End Date Joyce Mcgrath MD PCP - General Internal Medicine 01/27/17 05/31/21 Talia Valle MD [address] [place] [id number] PCP - General Internal Medicine 06/01/21 documented as of this encounter
--- OUTSIDE RECORDS SUMMARY | 2024-05-31 17:45 | XMS_ITS | Encounter Summary ---
Author Organization [facility] Address [address] [place] [phone] Phone Care Team Providers Care Coding Specialist Name Role Phone Reva Acevedo MD Primary Care Provider [phone] Encounter Details Date Type Department Care Team (Late st Contact Info) Description 05/24/2012 Documentation [facility] [place] Family Medicine [address] [place], [place] [id number] Family Medicine, Physician [address] [place] [address] Social History Tobacco Use Types Packs/Day Years [...] on filedocumented in this encounter Care Teams Coding Specialist Relationship Specialty Start Date End Date Reva Acevedo MD [address] [place] [address] [place] Love [id number] PCP - General 11/11/16 11/08/22 documented as of this encounter
--- OUTSIDE RECORDS SUMMARY | 2024-05-31 17:45 | XMS_ITS | Encounter Summary ---
Author Organization [facility] Address [address] [place] [address] Care Team Providers Care Hem Inspector Name Role Phone Joyce Mcgrath MD Primary Care Provider Unavail able Talia Valle MD Primary Care Provider Reason for Visit * Reason Comments E-prescribe Rx Request Encounter Details Date Type Department Care Team Description 05/23/2021 Refill Adult Medicine [address] [address] Joyce Mcgrath MD E-prescribe Rx Request Social History Tobacco Use Types Packs/Day Years Used Date Smoking Tobacco: Never Smokeless Tobacco: Never Alcohol Use Standard Drinks/Week Comments Yes 0 (1 standard drink = 0.6 oz pur e alcohol) socially Sex Assigned at Date Recorded Female 02/15/2021 10:43 AM EST documented as of this encounter Miscellaneous Notes * Telephone Encounter - Sinai Cintron M.A. - 05/26/2021 3:15 PM EST Refused pharmacy request, pt has enough med until 07/14/2021 pt needs appt/change pcp * Telephone Encounter - Ana Rosa Feng - 05/26/2021 2:52 PM EST L/m for pt update pcp and make future appt. documented in this encounter Plan of Treatment Not on file documented as of this encounter Visit Diagnoses Not on filedocumented in this encounter Care Teams Hem Inspector Relationship Specialty Start Date End Date Joyce Mcgrath MD PCP - General Internal Medicine 01/27/17 05/31/21 Talia Valle MD [address] [place] [address] PCP - General Internal Medicine 06/01/21 documented as of this encounter
== END 2024-05-31 15:46 | disposition home or self-care (01) ==
LOC: HO.RESP 15:45
PROVIDERS: PCP Internal Medicine; Visit Provider Nurse Practitioner Family
DX: J45.909 Unspecified asthma, uncomplicated (principal)
CPT/HCPCS: 94010; 94640; 94727; 94729

== ENCOUNTER → 2024-05-31 15:54 | Outpatient (BNV) | payer OTHER, SELFPAY | PROVIDERS: PCP Internal Medicine; Visit Provider Internal Medicine Pulmonary Disease | DX: J45.909 Unspecified asthma, uncomplicated (principal) | CPT/HCPCS: 94060; 94727; 94729 ==